=== PATIENT | male | born 1965 | race Two or more races ===

== ENCOUNTER 2021-06-09 04:17 | Inpatient (IN) | payer OTHER ==
[2021-06-05 09:57] VITALS: BMI 30.4
[2021-06-09] MEDS ORDERED: PROPOFOL 20 ML ONE ×2 (07:18)
[2021-06-09] MEDS ORDERED: MIDAZOLAM HCL 2 MG/2 ML SINGLE DOSE VIAL ONE ×2 (07:18→08:18)
[2021-06-09] MEDS ORDERED: BUPIVACAINE LIPOSOME/PF (EXPAREL) 266 MG/20 ML VIAL ONE (07:19)
[2021-06-09] MEDS ORDERED: BUPIVACAINE HCL/PF 0.25% (2.5MG/ML) 10 ML VIAL ONE (07:20)
[2021-06-09] MEDS ORDERED: THROMBIN (BOVINE) 5,000 UNIT VIAL TP ONE ×3 (07:20→09:06)
[2021-06-09] MEDS ORDERED: GENTAMICIN SO4 80 MG/2 ML VIAL ONE (07:21)
[2021-06-09] MEDS ORDERED: ROCURONIUM BROMIDE 50 MG/5 ML SYRINGE ONE ×4 (07:22→10:53)
[2021-06-09] MEDS ORDERED: ceFAZolin SODIUM 1 GM VIAL ONE ×2 (07:27→16:31)
[2021-06-09] MEDS ORDERED: ONDANSETRON 4 MG/2 ML VIAL ONE ×2 (07:27→16:53)
[2021-06-09] MEDS ORDERED: DEXAMETHASONE SOD PHOSPHATE 4 MG/1 ML VIAL ONE (07:27)
[2021-06-09] MEDS ORDERED: LIDOCAINE HCL/PF 2% SDV 5ML VIAL ONE (07:27)
[2021-06-09] MEDS ORDERED: ePHEDrine SULFATE 50 MG/1 ML AMPULE ONE (08:32)
[2021-06-09] MEDS ORDERED: ceFAZolin SODIUM 1 GM VIAL IVPB ONE ×2 (08:42→11:06)
[2021-06-09] MEDS ORDERED: VANCOMYCIN 1,000 MG VIAL (RESTRICTED TO ID ONLY) ONE (08:44)
[2021-06-09] MEDS ORDERED: VANCOMYCIN 1,000 MG VIAL (RESTRICTED TO ID ONLY) IVPB ONE (08:52)
[2021-06-09] MEDS ORDERED: TRANEXAMIC ACID 1000 MG/10 ML VIAL IVPB ONE ×2 (08:54→11:27)
[2021-06-09] MEDS ORDERED: HYDROmorphone HCl 2 MG/ML VIAL ONE ×2 (08:56→11:03)
[2021-06-09] MEDS ORDERED: BACITRACIN 50,000 UNITS VIAL TP ONE (09:06)
[2021-06-09] MEDS ORDERED: GENTAMICIN SO4 80 MG/2 ML VIAL IVPB ONE (09:06)
[2021-06-09] MEDS ORDERED: ONDANSETRON 4 MG/2 ML VIAL IVPUSH PRN ×3 (09:20→14:02)
[2021-06-09] MEDS ORDERED: oxyCODONE HCL 5 MG TABLET PO PRN ×4 (09:20→11:33)
[2021-06-09] MEDS ORDERED: oxyCODONE HCL 10 MG SUSTAINED ACTING TABLET PO SCH (10:00)
[2021-06-09] MEDS ORDERED: MORPHINE 5 MG/10 ML AMP - FOR COMPOUNDING USE ONLY ONE (10:39)
[2021-06-09] MEDS ORDERED: morphine SULFATE/PF 1 MG/2 ML (2cc Syringe - QUVA) IT ONE (11:33)
[2021-06-09] MEDS ORDERED: NALOXONE HCL 0.4 MG/ML VIAL IVPUSH PRN (11:33)
[2021-06-09] MEDS ORDERED: BUPIVACAINE LIPOSOME/PF (EXPAREL) 266 MG/20 ML VIAL NR ONE (11:50)
[2021-06-09] MEDS ORDERED: BUPIVACAINE HCL/PF 0.25% (2.5MG/ML) 10 ML VIAL IJ ONE (11:50)
[2021-06-09] MEDS ORDERED: NEOSTIGMINE METHYLSULFATE 0.5 MG/1 ML - 10 ML MDV ONE (12:01)
[2021-06-09] MEDS ORDERED: GLYCOPYRROLATE 0.2 MG/1 ML VIAL ONE (12:01)
[2021-06-09] MEDS ORDERED: BENZOIN/ALOE VERA/STORAX/TOLU 58 ML BOTTLE ONE (12:03)
[2021-06-09] MEDS: ACETAMINOPHEN 1000 MG/100 ML VIAL (NON FORMULARY) IVPB SCH ×4 (12:47→21:15)
[2021-06-09] MEDS ORDERED: diazePAM CARPU-JECT 10 MG/2 ML DISP.SYRIN IVPUSH PRN (14:02)
[2021-06-09] MEDS ORDERED: CEFAZOLIN 2 GM in DEXTROSE 5%-WATER - 50 ML IVPB SCH ×2 (17:00→23:00)
[2021-06-09] MEDS ORDERED: MORPHINE SULFATE 2 MG/ML VIAL ONE (17:32)
[2021-06-09] MEDS: MORPHINE SULFATE 2 MG/ML VIAL IVPUSH PRN ×2 (17:34→22:30)
[2021-06-09] MEDS: LACTATED RINGERS SOLUTION 1,000 ML IV SCH ×2 (18:31→18:34)
[2021-06-09] MEDS: DOCUSATE SODIUM 100 MG CAPSULE (FP) PO SCH (21:12)
[2021-06-09] MEDS: CEFAZOLIN 2 GM/D5W 2 GM/50 ML ML IVPB SCH (22:34)
[2021-06-10] MEDS ORDERED: MELATONIN 5 MG TABLETS PO ONE (01:02)
[2021-06-10] MEDS: MORPHINE SULFATE 2 MG/ML VIAL IVPUSH PRN ×3 (01:30→09:39)
[2021-06-10] MEDS: ACETAMINOPHEN 1000 MG/100 ML VIAL (NON FORMULARY) IVPB SCH (04:18)
[2021-06-10] MEDS: CEFAZOLIN 2 GM/D5W 2 GM/50 ML ML IVPB SCH (04:53)
[2021-06-10 07:51] LABS: HEMATOCRIT 30.5 % (35.4-49); HEMOGLOBIN 10.7 GM/dL (11.7-16.9); MCH 30.4 pg (25.7-33.7); MCHC 35.1 g/dl (32.0-35.9); MEAN CELL VOLUME 86.7 fl (80-96); MEAN PLT VOLUME 7.9 fl (7.5-11.1); PLATELET COUNT 104 10^3/uL (134-434); RBC 3.52 M/mm3 (4.00-5.60); RDW 13.3 % (11.9-15.9); WHITE BLOOD COUNT 8.1 K/mm3 (4.0-10.0)
[2021-06-10 08:19] LABS: CALCIUM 7.5 mg/dL (8.5-10.1)
[2021-06-10 08:20] LABS: BLOOD UREA NITROGEN 12.8 mg/dL (7-18); MAGNESIUM 1.9 mg/dL (1.8-2.4)
[2021-06-10 08:23] LABS: CREATININE 0.9 mg/dL (0.55-1.3)
[2021-06-10] MEDS: DOCUSATE SODIUM 100 MG CAPSULE (FP) PO SCH ×2 (09:04→21:01)
[2021-06-10] MEDS: LACTATED RINGERS SOLUTION 1,000 ML IV SCH ×2 (09:41→14:30)
[2021-06-10] MEDS ORDERED: KETOROLAC TROMETHAMINE 30 MG/1 ML VIAL IVPUSH ONE (11:00)
[2021-06-10] MEDS: oxyCODONE HCL 10 MG SUSTAINED ACTING TABLET PO SCH ×2 (12:12→21:01)
[2021-06-10] MEDS ORDERED: morphine SULFATE 4 MG/ML VIAL IVPUSH ONE (14:15)
[2021-06-10] MEDS: morphine SULFATE 4 MG/ML VIAL IVPUSH PRN ×2 (17:13→20:55)
[2021-06-10] MEDS ORDERED: ACETAMINOPHEN 1000 MG/100 ML VIAL (NON FORMULARY) IVPB ONE ×2 (18:37→23:00)
[2021-06-11] MEDS: morphine SULFATE 4 MG/ML VIAL IVPUSH PRN ×4 (00:52→10:45)
[2021-06-11] MEDS: LACTATED RINGERS SOLUTION 1,000 ML IV SCH ×2 (03:18→15:31)
[2021-06-11 08:40] LABS: BASO % 0.6 % (0-2.0); EOS % 0.3 % (0-4.5); HEMATOCRIT 31.7 % (35.4-49); HEMOGLOBIN 11.2 GM/dL (11.7-16.9); LYMPH % 17.7 % (8-40); MCH 30.8 pg (25.7-33.7); MCHC 35.2 g/dl (32.0-35.9); MEAN CELL VOLUME 87.5 fl (80-96); MEAN PLT VOLUME 8.2 fl (7.5-11.1); MONO % 8.5 % (3.8-10.2); NEUT % 72.9 % (42.8-82.8); PLATELET COUNT 91 10^3/uL (134-434); RBC 3.62 M/mm3 (4.00-5.60); RDW 13.4 % (11.9-15.9); WHITE BLOOD COUNT 9.5 K/mm3 (4.0-10.0)
[2021-06-11 09:09] LABS: BLOOD UREA NITROGEN 8.7 mg/dL (7-18); CALCIUM 7.5 mg/dL (8.5-10.1)
[2021-06-11 09:11] LABS: CREATININE 0.7 mg/dL (0.55-1.3)
[2021-06-11 09:13] LABS: BILIRUBIN,TOTAL 0.7 mg/dL (0.2-1)
[2021-06-11 09:19] LABS: TOT PROT 5.5 g/dl (6.4-8.2)
[2021-06-11 09:33] LABS: ALBUMIN 2.7 g/dl (3.4-5.0)
[2021-06-11] MEDS: oxyCODONE HCL 10 MG SUSTAINED ACTING TABLET PO SCH ×2 (09:34→21:36)
[2021-06-11] MEDS: DOCUSATE SODIUM 100 MG CAPSULE (FP) PO SCH ×2 (09:35→21:36)
[2021-06-11] MEDS ORDERED: ACETAMINOPHEN 1000 MG/100 ML VIAL (NON FORMULARY) IVPB PRN (13:14)
[2021-06-11] MEDS ORDERED: KETOROLAC TROMETHAMINE 30 MG/1 ML VIAL IVPUSH ONE (16:30)
[2021-06-11 20:51] LABS: MAGNESIUM 2.1 mg/dL (1.8-2.4)
[2021-06-11 20:55] LABS: PHOSPHOROUS 1.9 mg/dL (2.5-4.9)
[2021-06-11] MEDS ORDERED: SODIUM PHOSPHATE - 30 MM in SODIUM CHLORIDE 250 ML IVPB ONE (22:04)
[2021-06-12 07:32] LABS: HEMATOCRIT 29.7 % (35.4-49); HEMOGLOBIN 10.4 GM/dL (11.7-16.9); MCH 30.1 pg (25.7-33.7); MCHC 35.1 g/dl (32.0-35.9); MEAN CELL VOLUME 85.8 fl (80-96); MEAN PLT VOLUME 8.1 fl (7.5-11.1); PLATELET COUNT 99 10^3/uL (134-434); RBC 3.46 M/mm3 (4.00-5.60); RDW 13.1 % (11.9-15.9); WHITE BLOOD COUNT 6.9 K/mm3 (4.0-10.0)
[2021-06-12 07:50] LABS: CALCIUM 7.1 mg/dL (8.5-10.1)
[2021-06-12 07:54] LABS: CREATININE 0.7 mg/dL (0.55-1.3)
[2021-06-12 07:56] LABS: BILIRUBIN,TOTAL 0.5 mg/dL (0.2-1); TOT PROT 5.2 g/dl (6.4-8.2)
[2021-06-12 08:23] LABS: ALBUMIN 2.4 g/dl (3.4-5.0)
[2021-06-12] MEDS: DOCUSATE SODIUM 100 MG CAPSULE (FP) PO SCH ×2 (09:14→21:41)
[2021-06-12] MEDS: oxyCODONE HCL 10 MG SUSTAINED ACTING TABLET PO SCH ×2 (09:14→21:41)
[2021-06-12] MEDS ORDERED: SODIUM CHLORIDE 1,000 ML IV SCH (17:00)
[2021-06-12] MEDS: KETOROLAC TROMETHAMINE 30 MG/1 ML VIAL IVPUSH PRN (17:42)
[2021-06-12] MEDS: NAPH,MB-DB/K PH,MBDB POWDER PACKET PO SCH (21:43)
[2021-06-13] MEDS: KETOROLAC TROMETHAMINE 30 MG/1 ML VIAL IVPUSH PRN (04:40)
[2021-06-13 07:32] LABS: BASO % 0.6 % (0-2.0); EOS % 7.4 % (0-4.5); HEMATOCRIT 31.4 % (35.4-49); LYMPH % 17.6 % (8-40); MCH 30.4 pg (25.7-33.7); MCHC 35.1 g/dl (32.0-35.9); MEAN CELL VOLUME 86.6 fl (80-96); MEAN PLT VOLUME 8.3 fl (7.5-11.1); MONO % 6.4 % (3.8-10.2); PLATELET COUNT 120 10^3/uL (134-434); RBC 3.63 M/mm3 (4.00-5.60); WHITE BLOOD COUNT 5.7 K/mm3 (4.0-10.0)
[2021-06-13 07:48] LABS: CALCIUM 7.3 mg/dL (8.5-10.1)
[2021-06-13 07:49] LABS: ALBUMIN 2.3 g/dl (3.4-5.0); BLOOD UREA NITROGEN 10.8 mg/dL (7-18); MAGNESIUM 2.1 mg/dL (1.8-2.4)
[2021-06-13 07:52] LABS: CREATININE 0.7 mg/dL (0.55-1.3); PHOSPHOROUS 2.3 mg/dL (2.5-4.9)
[2021-06-13 07:53] LABS: BILIRUBIN,TOTAL 0.5 mg/dL (0.2-1)
[2021-06-13 07:54] LABS: TOT PROT 5.4 g/dl (6.4-8.2)
[2021-06-13] MEDS: NAPH,MB-DB/K PH,MBDB POWDER PACKET PO SCH (10:43)
[2021-06-13] MEDS: oxyCODONE HCL 10 MG SUSTAINED ACTING TABLET PO SCH (10:43)
[2021-06-13] MEDS: DOCUSATE SODIUM 100 MG CAPSULE (FP) PO SCH (10:43)
[2021-06-13 14:47] VITALS: BP 123/69; PULSE 96; TEMP 98.5
== END 2021-06-13 18:24 | disposition home health service (06) | DRG 304 ==
LOC: J2C 04:17 → J4W 18:02
PROVIDERS: ADMIT Orthopaedic Surgery Orthopaedic Surgery of the Spine; ATTEND Internal Medicine
PROC: 0SG0071 Fusion of Lumbar Vertebral Joint with Autologous Tissue Substitute, Posterior Approach, Posterior Column, Open Approach (ICD-10-PCS; 2021-06-09)
PROC: 0SG30AJ Fusion of Lumbosacral Joint with Interbody Fusion Device, Posterior Approach, Anterior Column, Open Approach (ICD-10-PCS; 2021-06-09)
PROC: 0SG3071 Fusion of Lumbosacral Joint with Autologous Tissue Substitute, Posterior Approach, Posterior Column, Open Approach (ICD-10-PCS; 2021-06-09)
PROC: 01NB0ZZ Release Lumbar Nerve, Open Approach (ICD-10-PCS; 2021-06-09)
PROC: 07DR3ZZ Extraction of Iliac Bone Marrow, Percutaneous Approach (ICD-10-PCS; 2021-06-09)
PROC: 4A11X4G Monitoring of Peripheral Nervous Electrical Activity, Intraoperative, External Approach (ICD-10-PCS; 2021-06-09)
PROC: 0SG00AJ Fusion of Lumbar Vertebral Joint with Interbody Fusion Device, Posterior Approach, Anterior Column, Open Approach (ICD-10-PCS; principal; 2021-06-09 08:00)
DX: M51.16 Intervertebral disc disorders with radiculopathy, lumbar region (principal); M48.062 Spinal stenosis, lumbar region with neurogenic claudication; M51.17 Intervertebral disc disorders with radiculopathy, lumbosacral region; M48.07 Spinal stenosis, lumbosacral region; I49.3 Ventricular premature depolarization; I10 Essential (primary) hypertension; M54.5 Low back pain; I49.9 Cardiac arrhythmia, unspecified; R20.0 Anesthesia of skin; G89.29 Other chronic pain; J95.89 Other postprocedural complications and disorders of respiratory system, not elsewhere classified; J98.11 Atelectasis; R50.82 Postprocedural fever; K56.7 Ileus, unspecified; Y83.8 Other surgical procedures as the cause of abnormal reaction of the patient, or of later complication, without mention of misadventure at the time of the procedure
CPT/HCPCS: 36415; 71045-TC-FY; 72131-TC; 74018-TC-FY; 76000-TC-FY; 80048; 80053; 82962; 83735; 84100; 84132; 85025; 85027; 86850; 86900; 86901; 93005; 93010; 93306-TC; 94010; 94760; 97116-GP; 97162-GP; J0131

== ENCOUNTER 2021-06-27 19:42 | Emergency (ER) | payer OTHER ==
[2021-06-27 19:47] VITALS: TEMP 98; BMI 28.1
[2021-06-27] MEDS ORDERED: CEPHALEXIN MONOHYDRATE 500 MG CAPSULE (UD) PO ONE (20:54)
[2021-06-27] MEDS ORDERED: CEPHALEXIN MONOHYDRATE 500 MG CAPSULE (UD) ONE (21:01)
[2021-06-27 21:30] VITALS: BP 118/73; PULSE 99
== END 2021-06-27 21:52 | disposition home or self-care (01) ==
LOC: JER 19:42
DX: T81.49XA Infection following a procedure, other surgical site, initial encounter (principal)
CPT/HCPCS: 82962; 99283-25